=== PATIENT | female | born 2000 | race Caucasian/White ===

== ENCOUNTER 2022-04-24 14:37 | Emergency (ER) | payer BC | END 2022-04-24 16:46 | disposition left against medical advice (07) | LOC: JD.ED 14:37 | DX: Z53.21 Procedure and treatment not carried out due to patient leaving prior to being seen by health care provider (principal) ==

== ENCOUNTER 2022-04-26 14:13 | Emergency (ER) | payer OTHER, BC | END 2022-04-26 19:00 | disposition home or self-care (01) | LOC: JD.ED 14:13 | DX: S09.90XA Unspecified injury of head, initial encounter (principal); S29.9XXA Unspecified injury of thorax, initial encounter; V49.9XXA Car occupant (driver) (passenger) injured in unspecified traffic accident, initial encounter; Y92.410 Unspecified street and highway as the place of occurrence of the external cause | CPT/HCPCS: 36415; 70450; 70450-26; 71046; 71046-26; 80053; 84484; 85025; 93005; 99284 ==